=== PATIENT | female | born 1965 | race Caucasian/White ===

== ENCOUNTER 2021-12-01 23:36 | Emergency (ER) | payer SELFPAY ==
[2021-12-01 23:49] VITALS: BP 135/65; PULSE 75; RESP 17; TEMP 97.5; BMI 25.6
[2021-12-01] MEDS ORDERED: SODIUM CHLORIDE 1,000 ML IV ONE (23:55)
[2021-12-01] MEDS ORDERED: METOCLOPRAMIDE HCL INJECTION 10 MG/2 ML VIAL IVPUSH ONE (23:55)
[2021-12-01] MEDS ORDERED: METOCLOPRAMIDE HCL INJECTION 10 MG/2 ML VIAL ONE (23:58)
[2021-12-01] MEDS ORDERED: KETOROLAC TROMETHAMINE 30 MG/1 ML VIAL IVPUSH ONE (23:59)
[2021-12-02] MEDS ORDERED: KETOROLAC TROMETHAMINE 30 MG/1 ML VIAL ONE (00:04)
== END 2021-12-02 01:23 | disposition home or self-care (01) ==
LOC: FER 23:36
PROC: 3E0333Z Introduction of Anti-inflammatory into Peripheral Vein, Percutaneous Approach (ICD-10-PCS; principal; 2021-12-01)
PROC: 3E033GC Introduction of Other Therapeutic Substance into Peripheral Vein, Percutaneous Approach (ICD-10-PCS; 2021-12-01)
PROC: 3E0337Z Introduction of Electrolytic and Water Balance Substance into Peripheral Vein, Percutaneous Approach (ICD-10-PCS; 2021-12-01)
DX: R11.2 Nausea with vomiting, unspecified (principal)
CPT/HCPCS: 99284-25